=== PATIENT | male | born 2005 | race African-American/Black ===

== ENCOUNTER 2025-04-13 12:51 | Emergency (ER) | payer BC, OTHER, SELFPAY ==
--- NOTE | ~2025-04-13 | XR_ITS ---
EXAM/ PROCEDURE: XR ankle LT min 3V - 04/13/2025 13:16 CDT HISTORY: 20 years old Male with sports injury PAIN LATERAL AND POSTERIOR COMPARISON: None available TECHNIQUE: Three view(s) FINDINGS/ IMPRESSION: There are no fractures or dislocations.Joint spaces are within normal limits. Mild diffuse soft tissue swelling. Reviewed, dictated and finalized at location N.
[2025-04-13 12:54] VITALS: BP 136/75; PULSE 80; RESP 16; TEMP 36.2; O2SAT 100
[2025-04-13] MEDS: IBUPROFEN 600 MG TABLET PO (14:44)
--- NOTE | 2025-04-13 15:02 | ED_ITS ---
HPI - Extremity Injury (Lower) General Chief Complaint: Extremity Injury, Lower Stated Complaint: ankle injury Time Seen by Provider: 04/13/25 13:00 Source: patient and RN notes reviewed Mode of arrival: ambulatory Limitations: no limitations History of Present Illness HPI Narrative: 20-year-old male Presents [facility] complaining of injury to left ankle. Patient reports he was playing basketball earlier today when he went to jump for a lay up and felt a pop in his left ankle. Since then patient is having a hard time baring weight to his left foot. Patient denies any numbness, tingling or any other injuries. Patient denies any significant past medical history. Related Data Allergies Allergy/AdvReac Type Severity Reaction Status Date / Time egg Allergy Nausea and Verified 04/13/25 12:54 Vomiting Review of Systems Review of Systems: CONSTITUTIONAL: Denies fever, chills, or sweats. EYES: Denies visual changes, redness, or discharge. ENT: Denies rhinorrhea, congestion, sore throat, or otalgia. CARDIOVASCULAR: Denies chest pain, palpitations, or edema. RESPIRATORY: Denies cough or dyspnea. GASTROINTESTINAL: Denies abdominal pain, nausea, vomiting, or diarrhea. GENITOURINARY: Denies dysuria or hematuria. SKIN: Denies rash, wound, or itching. MUSCULOSKELETAL: Denies back pain, joint pain, or myalgia. Positive for left ankle injury and swelling NEUROLOGIC: Denies headache, numbness, or weakness. PSYCHIATRIC: Denies anxiety or depression. All other systems reviewed are negative, except as documented in HPI. PMFSH Comments At the time of my signature, I reviewed and agree with the nursing past medical, surgical, social, and family history. There is no relevant family history pertinent to the patient complaint. Exam Narrative: GENERAL: This is a well-nourished, well-developed adult, in no apparent distress. They are non ill-appearing, nontoxic appearing. HEAD: normocephalic, atraumatic. EYES: Sclera clear/white. Vision is grossly intact. Conjunctiva normal. Extraocular movement intact. EARS: External ears normal Hearing grossly intact. NOSE: External nose normal THROAT: Mucous membranes moist NECK: Neck supple CARDIOVASCULAR: Regular rate and rhythm RESPIRATORY: Respiratory rate normal, respiratory effort nonlabored, no respiratory distress NEURO: awake, alert, and oriented to person, place and time. There were no obvious focal neurologic abnormalities. EXTREMITIES: Left ankle: No obvious deformity, injury, bruising, redness. Mild swelling to the ankle. Limited range of motion. Tender to palpate to the Achilles tendon. No bony tenderness. Capillary refill less than 3 seconds. Left pedal Pulse 2 +palpable. Normal sensation. Neurovascular status intact distal injury. Patient a little is toes. Positive Cool's test. BACK: Nontender without deformity. Course Course Emergency Course: Portions of this record may have been created with voice recognition software Vital Signs Vital signs: Vital Signs Temperature 97.2 F L 04/13/25 12:54 Pulse Rate 80 04/13/25 12:54 Respiratory Rate 16 04/13/25 12:54 Blood Pressure 136/75 04/13/25 12:54 Pulse Oximetry 100 04/13/25 12:54 Temperature 97.2 F L 04/13/25 12:54 Pulse Rate 80 04/13/25 12:54 Respiratory Rate 16 04/13/25 12:54 Blood Pressure 136/75 04/13/25 12:54 Pulse Oximetry 100 04/13/25 12:54 Reviewed Procedures Orthopedic Splinting/Casting Injury #1: Splinting/Casting Date: 04/13/25 Splinting/Casting Time: 14:15 Side: left Splint: customized in ED OCL: short leg Pre-Procedure Neuro Vascular Exam: normal Post-Procedure Neuro Vascular Exam: normal Other Orthopedic Equipment: crutches Additional Comments: Patient tolerated procedure well. MDM - Extremity Injury (Lower) MDM Narrative Medical decision making narrative: X-ray left ankle negative for any fractures or acute findings. Positive Cool's test. High suspicion for Achilles tendon rupture. Patient given a dose of Motrin and ice pack. Called and spoke to Dr. Ayoub who agrees with short-leg posterior and crutches and not wipe bearing will see the patient the office for follow-up. Discussed physical exam findings. Advised supportive measures and signs/symptoms to go to the ER. Pt is appropriate for outpt treatment and f/u. Differential Diagnosis Differential diagnosis: Likely other (Ankle fracture, ankle sprain, Achilles tendon rupture) Imaging Data Radiologist's impression: FINDINGS/ IMPRESSION: There are no fractures or dislocations.Joint spaces are within normal limits. Mild diffuse soft tissue swelling. Critical Care Time Critical Care Time Critical Care Time: No Discharge Plan Discharge Clinical Impression: Injury of left Achilles tendon, Injury of ankle, left Patient Disposition: Home Condition: Stable Instructions: Achilles Tendon Rupture (ED) Additional Instructions: The x-ray of your left ankle is negative for any fractures or acute findings. It is likely that you have ruptured your Achilles tendon. Please wear the splin t at all times and be nonweightbearing until you have been evaluated by ortho. Please keep the splint dry and covered while showering. Use the crutches to walk around. You may take ibuprofen 600 mg to 800 mg every 6-8 hours. Do not exceed more than 800 mg of ibuprofen per dose. Do not exceed more than 3200 mg ibuprofen in a day. You may take up to 1000 mg Tylenol every 6-8 hours. Do not exceed 1000 mg per dose, do exceed more than 4000 mg of Tylenol in a day. May apply ice to affected area 20 minutes at a time few times a day. Follow-up with ortho in 3-5 days. Return to the ER for any serious concerns are uncontrollable pain. Patient Language: Moldovan Follow-up/Referrals: Raheel Ayoub MD [Physician, Orthopedics] - 3 Days Clinical Impression: Injury of left Achilles tendon; Injury of ankle, left PHYSICIAN NOT ON STAFF,NONSTAFF [Primary Care Provider] Time of Disposition: 13:57
== END 2025-04-13 15:19 | disposition home or self-care (01) ==
DX: S99.912A Unspecified injury of left ankle, initial encounter (principal); S86.002A Unspecified injury of left Achilles tendon, initial encounter; X50.9XXA Other and unspecified overexertion or strenuous movements or postures, initial encounter; Y93.67 Activity, basketball
CPT/HCPCS: 29515; 73610; 99283; A9270